=== PATIENT | male | born 1970 | race Caucasian/White ===

== ENCOUNTER 2018-01-12 12:55 | Outpatient (CLI) | payer BC | END 2018-01-12 12:56 | disposition home or self-care (01) | LOC: DTY/OP 12:55 | PROVIDERS: ATTEND Surgery | DX: E66.01 Morbid (severe) obesity due to excess calories (principal); K22.70 Barrett's esophagus without dysplasia; I10 Essential (primary) hypertension; Z98.84 Bariatric surgery status | CPT/HCPCS: 97802 ==

== ENCOUNTER 2018-02-04 15:39 | Outpatient (CLI) | payer BC | END 2018-02-04 15:40 | disposition home or self-care (01) | LOC: BICULT 15:39 | PROVIDERS: ATTEND Surgery | DX: N50.819 Testicular pain, unspecified (principal); N43.3 Hydrocele, unspecified | CPT/HCPCS: 76870; 93976 ==